=== PATIENT | female | born 1995 | race Caucasian/White ===

== ENCOUNTER 2019-03-23 07:32 | Emergency (ER) | payer OTHER ==
[~2019-03-23] VITALS: Ht 167.6 cm; Wt 63.5 kg
[2019-03-23 07:38] VITALS: Ht 167.6 cm; Wt 63.5 kg
[2019-03-23 08:08] LABS: BASOPHIL % 0.5 % (0-2); PLATELET COUNT 183 x10^3mcL (130-400)
[2019-03-23 08:25] LABS: UA SPECIFIC GRAVITY <=1.005 (1.005-1.035); microscopic required? YES; urine erythrocyte 3+ (NEGATIVE)
[2019-03-23 08:34] LABS: RED CELL DISTRIBUTION WIDTH 15.2 % (11.5-14.5)
[2019-03-23 11:06] VITALS: BP 120/59
== END 2019-03-23 11:08 | disposition home or self-care (01) ==
LOC: ED 07:32
DX: O20.0 Threatened abortion (principal); Z3A.18 18 weeks gestation of pregnancy
CPT/HCPCS: 36415